=== PATIENT | male | born 1985 ===

== ENCOUNTER 2017-10-28 14:46 | Emergency (ER) | payer OTHER ==
--- NOTE | 2017-10-28 15:19 | UC ---
Skin Complaint HPI - HPI Summary HPI Summary: 2 DAYS OF LEFT THIRD FINGER REDNESS, SWELLING AND PAIN. PATIENT WAS CHEWING ON HIS FINGERNAIL BECAUSE HE THOUGHT IT WAS BECOMING INGROWN WHEN THE SYMPTOMS STARTED. NO FEVER. NO DRAINAGE FROM THE FINGER. - History of Current Complaint Chief Complaint: UCUpperExtremity Time Seen by Provider: 10/28/17 14:51 Stated Complaint: FINGER INJURY Hx Obtained From: Patient Onset/Duration: Gradual Onset, Lasting Days, Still Present Timing: Constant Onset Severity: Moderate Current Severity: Moderate Pain Intensity: 10 Pain Scale Used: 0-10 Numeric Location: Discrete - Distal Left third finger Character: Swelling, Pain, Redness Aggravating Factor(s): Touch Alleviating Factor(s): Nothing Associated Signs & Symptoms: Positive: Tenderness. Negative: Fever - Allergy/Home Medications Allergies/Adverse Reactions: Allergies Allergy/AdvReac Type Severity Reaction Status Date / Time No Known Allergies Allergy Verified 10/28/17 14:57 Review of Systems Constitutional: Negative Skin: Other - Erythema Respiratory: Negative Cardiovascular: Negative Gastrointestinal: Negative Musculoskeletal: Edema All Other Systems Reviewed And Are Negative: Yes PMH/Surg Hx/FS Hx/Imm Hx Previously Healthy: Yes - Surgical History Surgical History: Yes Surgery Procedure, Year, and Place: appy - Family History Known Family History: Positive: Other - positive FMH lacerations Negative: Hypertension - Social History Alcohol Use: Daily Alcohol Amount: "couple beers a day." Substance Use Type: None Smoking Status (MU): Never Smoked Tobacco Type: Smokeless Tobacco Physical Exam Triage Information Reviewed: Yes Appearance: Well-Appearing, No Pain Distress, Well-Nourished Vital Signs: Initial Vital Signs Temp 96.7 F 10/28/17 14:53 Pulse 83 10/28/17 14:53 Resp 20 10/28/17 14:53 BP 179/100 10/28/17 14:53 Pulse Ox 99 10/28/17 14:53 Vital Signs Reviewed: Yes Eyes: Positive: Conjunctiva Clear ENT: Positive: Hearing grossly normal Neck: Positive: Supple Respiratory: Positive: No respiratory distress, No accessory muscle use Cardiovascular: Positive: Pulses Normal Abdomen Description: Positive: Soft Musculoskeletal: Positive: ROM Intact Neurological: Positive: Alert Psychological: Positive: Age Appropriate Behavior Skin: Positive: Other - Left third finger with erythema distally and significant edema at medial nail bed Course/Dx - Course Course Of Treatment: PARONYCHIA LEFT THIRD FINGER OPENED WITH AN 18-GAUGE NEEDLE. APPROXIMATELY 1 ML OF PUS EXPRESSED. SPECIMEN SENT FOR CULTURE. AUGMENTIN TWICE DAILY FOR 10 DAYS. HOT SOAKS. FOLLOW-UP IF NEEDED. - Diagnoses Provider Diagnoses: PARONYCHIA LEFT 3RD FINGER Procedures - Incision and Drainage Site: left third finger medial nail bed Instrument(s): Needle - 18-gauge Discharge - Sign-Out/Discharge Documenting (check all that apply): Discharge/Admit/Transfer - Discharge Plan Condition: Stable Disposition: HOME Prescriptions: Amoxicillin/Clavulanate TAB* [Augmentin TAB 875*] 875 mg PO BID #20 tab Patient Education Materials: Paronychia (ED) Referrals: No Primary Care Phys,NOPCP [Primary Care Provider] - Additional Instructions: WARM/HOT COMPRESSES/SOAKS AT LEAST 4 TIMES DAILY. TAKE ANTIBIOTIC TWICE DAILY FOR THE FULL 10 DAYS. SPECIMEN SENT FOR CULTURE SEEK FOLLOW-UP IF YOU DEVELOP FURTHER SPREADING REDNESS OF THE SKIN, FEVER, INCREASED PAIN OR ANY OTHER CONCERNING SYMPTOMS. CALL THE NUMBER BELOW FOR ASSISTANCE IN ESTABLISHING WITH A PCP An additional resource available to assist in finding the appropriate physician for your health care needs is the [facility] ([facility] Noel). You may contact them by calling [phone]. - Billing Disposition and Condition Condition: STABLE Disposition: HOME
[2017-10-28 15:21] VITALS: BP 142/78
--- NOTE | 2017-11-01 15:34 | UC ---
- Progress Note Progress Note: Culture with Staph and Strep - sensitive to augmentin. No change. Discharge - Sign-Out/Discharge Documenting (check all that apply): Post-Discharge Follow Up - Discharge Plan Condition: Stable Disposition: HOME Prescriptions: Amoxicillin/Clavulanate TAB* [Augmentin TAB 875*] 875 mg PO BID #20 tab Patient Education Materials: Paronychia (ED) Referrals: No Primary Care Phys,NOPCP [Primary Care Provider] - Additional Instructions: WARM/HOT COMPRESSES/SOAKS AT LEAST 4 TIMES DAILY. TAKE ANTIBIOTIC TWICE DAILY FOR THE FULL 10 DAYS. SPECIMEN SENT FOR CULTURE SEEK FOLLOW-UP IF YOU DEVELOP FURTHER SPREADING REDNESS OF THE SKIN, FEVER, INCREASED PAIN OR ANY OTHER CONCERNING SYMPTOMS. CALL THE NUMBER BELOW FOR ASSISTANCE IN ESTABLISHING WITH A PCP An additional resource available to assist in finding the appropriate physician for your health care needs is the [facility] ([facility]yah Noel). You may contact them by calling [phone]. - Billing Disposition and Condition Condition: STABLE Disposition: HOME
== END 2017-10-28 15:35 | disposition home or self-care (01) ==
LOC: UCEAST 14:46
DX: L03.012 Cellulitis of left finger (principal); B95.61 Methicillin susceptible Staphylococcus aureus infection as the cause of diseases classified elsewhere
CPT/HCPCS: 10060; 87070; 87077; 87186; 87205; 87640; 87641; 99212; G0463

== ENCOUNTER 2019-06-16 09:37 | Emergency (ER) | payer OTHER ==
[2019-06-16 09:57] VITALS: BP 138/90
--- NOTE | 2019-06-16 10:55 | UC ---
Hand/Wrist HPI - HPI Summary HPI Summary: Pt presents with concern for FB in left index finger. 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 Pt has been soaking finger and trying ot work FB but unable to. Pt says that he can feel something move with use of a magnet. Pt's "stuck" pt with a pin at home and expressed purulent discharge not no obvious FB. - History Of Current Complaint Chief Complaint: UCForeignBody Stated Complaint: FOREIGN BODY LEFT INDEX FINGER Time Seen by Provider: 06/16/19 10:26 Hx Obtained From: Patient ?: No Onset/Duration: Sudden Onset, Lasting Days, Still Present Severity Initially: Mild Severity Currently: Moderate Pain Intensity: 3 Character Of Pain: Dull, Aching Aggravating Factor(s): Movement Alleviating Factor(s): Nothing Associated Signs And Symptoms: Positive: Swelling, Redness Related History: Dominant Hand Right - Risk Factors Compartment Syndrome Risk Factors: Pain - Allergies/Home Medications Allergies/Adverse Reactions: Allergies Allergy/AdvReac Type Severity Reaction Status Date / Time No Known Allergies Allergy Verified 10/28/17 14:57 PMH/Surg Hx/FS Hx/Imm Hx Previously Healthy: Yes - Surgical History Surgical History: Yes Surgery Procedure, Year, and Place: appy - Family History Known Family History: Positive: Other - positive FMH lacerations Negative: Hypertension - Social History Occupation: Employed Full-time Lives: With Family Alcohol Use: Daily Alcohol Amount: "couple beers a day." Substance Use Type: None Smoking Status (MU): Never Smoked Tobacco Type: Smokeless Tobacco Have You Smoked in the Last Year: No - Immunization History Vaccination Up to Date: Yes Review of Systems All Other Systems Reviewed And Are Negative: Yes Constitutional: Positive: Negative Skin: Positive: Other - mild erythema left index finger generalizewd, mild swelling. Eyes: Positive: Negative ENT: Positive: Negative Respiratory: Positive: Negative Cardiovascular: Positive: Negative Gastrointestinal: Positive: Negative Genitourinary: Positive: Negative Motor: Positive: Decreased ROM - with ROM Neurovascular: Positive: Negative Musculoskeletal: Positive: Arthralgia, Decreased ROM - left index finger, Edema , Myalgia Neurological: Positive: Negative Psychological: Positive: Negative Is Patient Immunocompromised?: No Physical Exam Triage Information Reviewed: Yes Appearance: Pain Distress - with ROM Vital Signs: Initial Vital Signs Temp 98.5 F 06/16/19 09:52 Pulse 73 06/16/19 09:52 Resp 18 06/16/19 09:52 BP 138/90 06/16/19 09:52 Pulse Ox 98 06/16/19 09:52 Vital Signs Reviewed: Yes Eye Exam: Normal ENT Exam: Normal ENT: Positive: Hearing grossly normal Dental Exam: Normal Neck exam: Normal Respiratory: Positive: No respiratory distress Musculoskeletal: Positive: ROM Limited @ - left index finger, Edema @ - left index index finger Neurological Exam: Normal Psychological Exam: Normal Skin Exam: Other - left index finger mild generalized erythema Diagnostics - Radiology No standard instances Radiology Interpretation Completed By: Radiologist - negative for FB Hand/Wrist Course/Dx - Differential Dx/Diagnosis Differential Diagnosis/HQI/PQRI: Cellulitis, Foreign Body Provider Diagnosis: Infected puncture wound of left index finger Discharge ED - Sign-Out/Discharge Documenting (check all that apply): Patient Departure All imaging exams completed and their final reports reviewed: Yes - Discharge Plan Condition: Stable Disposition: HOME Prescriptions: Cephalexin CAP* [Keflex 500 CAP*] 500 mg PO Q6H #40 cap Patient Education Materials: Wound Infection (ED) Referrals: [facility] [Outside] - If Needed Chintan Philippe MD [Medical Doctor] - If Needed No Primary Care Phys,NOPCP [Primary Care Provider] - - Billing Disposition and Condition Condition: STABLE Disposition: Home
== END 2019-06-16 11:02 | disposition home or self-care (01) ==
LOC: UCCORT 09:37
DX: S61.231A Puncture wound without foreign body of left index finger without damage to nail, initial encounter (principal); L08.9 Local infection of the skin and subcutaneous tissue, unspecified; W45.8XXA Other foreign body or object entering through skin, initial encounter; Y92.9 Unspecified place or not applicable
CPT/HCPCS: 73140; 99212; G0463